=== PATIENT | female | born 1960 | race African-American/Black ===

== ENCOUNTER 2016-09-06 23:32 | Emergency (ER) | payer MEDICAID ==
[~2016-09-06] VITALS: Ht 167.6 cm; Wt 88.5 kg
[~2016-09-06 23:32] MED LIST: CLINDAMYCIN HC300 MG ORAL; IBUPROFEN600 MG ORAL; TYLENOL #21 EA ORAL
[2016-09-06 23:40] VITALS: BP 150/83
[2016-09-07] MEDS ORDERED: CLINDAMYCIN HC300 MG ORAL (00:05)
[2016-09-07] MEDS ORDERED: ACETAMINOPHEN-1 EAC1 ORAL (00:05)
[2016-09-07] MEDS ORDERED: Ketorolac 60mg Inj IM ONE (00:15)
--- NOTE | 2016-09-07 00:19 | Emergency Room Report ---
History of Present Illness General Chief Complaint: Toothache Source: Patient Present Illness HPI 55 YO F with 2-3 days left facial swelling, toothache. hasnt seen a dentist. No OTC meds. Denies fever/chills, neck pain/swelling, tongue/lips swelling, drooling, painful or difficulty swallowing. Allergies: Coded Allergies: PENICILLINS (Unverified Allergy, Unknown, Anaphylaxis, 04/26/14) Patient History Past Medical History: none Past Surgical History: none Pertinent Family History: none Social History: Denies: alcohol use, drug use, smoking Now: No Immunizations: UTD Nursing Documentation-[facility] Hx Cardiac Problems: No - ankle surgery ,tubal ligation and heart murmur, obesity Review of Systems All Other Systems: negative except mentioned in HPI Physical Exam Vital Signs Date Time Temp Pulse Resp B/P Pulse Ox O2 Delivery O2 Flow Rate FiO2 09/06/16 23:35 98.6 76 18 166/80 100 Room Air Sp02 EP Interpretation: reviewed, normal General Appearance: normal inspection, well appearing, no apparent distress, alert Head: atraumatic ENT: normal ENT inspection, hearing grossly normal, normal pharynx, no angioedema, normal voice, TMs + canals normal, uvula midline, other - Left upper teeth, pre-molars rotten/infected. No periapical abscess. 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 VSS. Afebrile. No systemic symptoms or signs ludwigs Airway patent Rx Clinda, T#3, dentist followup BIPIN DC home Last Vital Signs Date Time Temp Pulse Resp B/P Pulse Ox O2 Delivery O2 Flow Rate FiO2 09/06/16 23:35 98.6 76 18 166/80 100 Room Air Status: improved Disposition: HOME, SELF-CARE Condition: Improved Scripts Acetaminophen With Codeine (T#3) (TYLENOL #3 TAB*) Y Tab 2 TAB ORAL Q6H Y for For Pain for 7 Days, #30 TAB Prov: JARED JAQUEZ M.D. 09/07/16 Clindamycin Hcl (CLINDAMYCIN HCL) 300 Mg Capsule 300 MG ORAL THREE TIMES A DAY for 7 Days, #21 CAP Prov: JARED JAQUEZ M.D. 09/07/16 Patient Instructions: Dental Pain Additional Instructions: - Follow up with dentist TODAY/Saturday - Take ALL antibiotics as prescribed - Take Tylenol with codeine as needed for pain JARED JAQUEZ M.D. Sep 07, 2016 00:19
[2016-09-07 00:30] VITALS: BP 150/83
== END 2016-09-07 00:30 | disposition home or self-care (01) ==
LOC: EMR 23:55
DX: K08.89 Other specified disorders of teeth and supporting structures (principal); Z88.0 Allergy status to penicillin
CPT/HCPCS: 96372; 99284

== ENCOUNTER 2017-03-08 22:36 | Emergency (ER) | payer MEDICAID ==
[~2017-03-08] VITALS: Ht 167.6 cm; Wt 90.7 kg
[~2017-03-08 22:36] MED LIST changes: +ACETAMINOPHEN-1 EAC1 ORAL
[2017-03-08 23:20] VITALS: BP 150/82
--- NOTE | 2017-03-08 23:39 | Emergency Room Report ---
History of Present Illness General Chief Complaint: Toothache Source: Patient Present Illness HPI Is a 56-year-old female with chief complaint of dental pain. She had a filling placed by dentist yesterday. Is only temporary. She was given clindamycin and Motrin. Still having pain. No nausea no vomiting. Pain is throbbing in nature. Denies any other complaint. She wanted a tooth to be pulled or the feeling taken out. Allergies: Coded Allergies: PENICILLINS (Unverified Allergy, Unknown, Anaphylaxis, 04/26/14) Patient History Past Medical History: see triage record, old chart reviewed Past Surgical History: none Pertinent Family History: none Social History: Reports: smoking Now: No Immunizations: other Reviewed Nursing Documentation: PMH: Agreed, PSxH: Agreed Nursing Documentation-PMH Past Medical History: No History, Except For Hx Cardiac Problems: No - ankle surgery ,tubal ligation and heart murmur, obesity Review of Systems Eye: Denies: eye pain, blurred vision ENT: Denies: ear pain, nose congestion, throat swelling Respiratory: Denies: cough, shortness of breath Cardiovascular: Denies: chest pain, palpitations Gastrointestinal: Denies: abdominal pain, diarrhea, nausea, vomiting Musculoskeletal: Denies: back pain, joint pain Skin: Denies: rash Neurological: Denies: headache, numbness Endocrine: Denies: increased thirst, increased urine Hematologic/Lymphatic: Denies: easy bruising All Other Systems: negative except mentioned in HPI Physical Exam Vital Signs Date Time Temp Pulse Resp B/P (MAP) Pulse Ox O2 Delivery O2 Flow Rate FiO2 03/08/17 23:10 98.4 92 16 150/82 100 Room Air vitals and high blood pressure Sp02 EP Interpretation: reviewed, normal General Appearance: well appearing, no apparent distress, alert Head: normocephalic, atraumatic Eyes: bilateral eye PERRL, bilateral eye EOMI ENT: hearing grossly normal, normal pharynx, other - Poor dentition. His only one molar left in the right lower jaw. He has a temporary filling in. Abscess. Neck: full range of motion, supple, no meningismus Respiratory: chest non-tender, lungs clear, normal breath sounds Cardiovascular #1: regular rate, rhythm, no murmur Gastrointestinal: normal bowel sounds, non tender, no mass, no organomegaly, no bruit, non-distended Musculoskeletal: back normal, gait/station normal, normal range of motion Neurologic: alert, oriented x3 Psychiatric: mood/affect normal Skin: warm/dry Procedures Additional Procedure Procedure Narrative Procedure: Dental block Indication: Dental pain Description: I injected 2 mL of 1% lidocaine with epinephrine into the right lower inferior alveolar ridge. Patient had good relief of pain. Patient tolerated procedure without a problem. Medical Decision Making Diagnostic Impression: Primary Impression: Toothache ER Course Patient with dental pain and probable infection. Told patient continue with her medication. She has Tylenol with codeine at home. She can take that. Would need to see a dentist on Saturday Last Vital Signs Date Time Temp Pulse Resp B/P (MAP) Pulse Ox O2 Delivery O2 Flow Rate FiO2 03/08/17 23:10 98.4 92 16 150/82 100 Room Air Status: improved Disposition: HOME, SELF-CARE Condition: Stable Patient Instructions: Dental Pain Additional Instructions: Follow up with your dentist BIPIN. Return if symptoms worsen. STEW MCLAIN M.D. Mar 08, 2017 23:39
[2017-03-08 23:46] VITALS: BP 150/82
[2017-03-09] MEDS ORDERED: LIDOCAINE VISC100 ML ORAL (23:43)
== END 2017-03-08 23:44 | disposition home or self-care (01) ==
LOC: EMR 23:33
DX: K08.89 Other specified disorders of teeth and supporting structures (principal); Z88.0 Allergy status to penicillin; F17.200 Nicotine dependence, unspecified, uncomplicated; K04.7 Periapical abscess without sinus
CPT/HCPCS: 64450; 99283

== ENCOUNTER 2017-03-09 23:22 | Emergency (ER) | payer MEDICAID ==
[~2017-03-09] VITALS: Ht 167.6 cm; Wt 90.7 kg
[2017-03-09 23:40] VITALS: BP 152/85
[2017-03-09] MEDS ORDERED: LIDOCAINE VISC100 ML ORAL (23:43)
[2017-03-09] MEDS ORDERED: Ketorolac 30mg Inj IM ONE (23:45)
[2017-03-09] MEDS ORDERED: Lidocaine 2% Visc 15ml soln ORAL ONE (23:45)
[2017-03-10 00:07] VITALS: BP 152/85
--- NOTE | 2017-03-10 04:52 | Emergency Room Report ---
History of Present Illness General Chief Complaint: Toothache Source: Patient Present Illness HPI Patient is a 56-year-old female who presented after right-sided toothache. The patient had been seen yesterday in the emergency department for similar complaints. The patient had been started on antibiotics. She been taking at t Tylenol codeine for pain. The patient had not been vomiting. She reports having recent dental procedure. She requested a filling to be removed. Allergies: Coded Allergies: PENICILLINS (Unverified Allergy, Unknown, Anaphylaxis, 04/26/14) Patient History Past Medical History: see triage record Now: No Reviewed Nursing Documentation: PMH: Agreed, PSxH: Agreed Nursing Documentation-PMH Past Medical History: No History, Except For Hx Cardiac Problems: No - ankle surgery ,tubal ligation and heart murmur, obesity Review of Systems All Other Systems: negative except mentioned in HPI Physical Exam Vital Signs Date Time Temp Pulse Resp B/P (MAP) Pulse Ox O2 Delivery O2 Flow Rate FiO2 03/09/17 23:32 98.4 71 15 152/85 99 Room Air Sp02 EP Interpretation: reviewed, normal General Appearance: normal inspection, well appearing, no apparent distress, alert, GCS 15, non-toxic Head: atraumatic ENT: normal ENT inspection, hearing grossly normal, normal voice Neck: normal inspection, full range of motion, supple, no bony tend Respiratory: normal inspection, lungs clear, normal breath sounds, no respiratory distress, no retraction, no wheezing Cardiovascular #1: regular rate, rhythm, no edema Gastrointestinal: normal inspection, normal bowel sounds, non tender, soft, no guarding, no hernia Genitourinary: no CVA tenderness Musculoskeletal: normal inspection, back normal, normal range of motion Neurologic: normal inspection, alert, oriented x3, responsive, speech normal Psychiatric: normal inspection, judgement/insight normal, mood/affect normal Skin: normal inspection, normal color, no rash Medical Decision Making Diagnostic Impression: Primary Impression: Pain, dental ER Course Patient presented for dental pain. Differential diagnosis included but was not limited to trigeminal neuralgia, dental abscess, dry socket, osteomyelitis, nerve injury. The patient was noted to have a benign exam. There is no evidence of infection. The patient is advised to follow up with dentist in 1- 2 days. Patient is advised to return if any worsening condition or if any changes in status that are concerning. Last Vital Signs Date Time Temp Pulse Resp B/P (MAP) Pulse Ox O2 Delivery O2 Flow Rate FiO2 03/10/17 00:07 98.4 88 16 152/85 100 Room Air Status: improved Disposition: HOME, SELF-CARE Condition: Stable Scripts Lidocaine HCl 2% Viscous (Lidocaine HCl 2% Viscous) 100 Ml Solution 15 ML ORAL QID, #100 ML Prov: Justin Mathews 03/09/17 Referrals: [facility],REFERRING (PCP) Patient Instructions: Dental Pain Justin Mathews Mar 10, 2017 04:52
[2017-03-10] MEDS ORDERED: IBUPROFEN600 MG ORAL (20:51)
[2017-03-10] MEDS ORDERED: NORCO 5-325 TA1 EACH ORAL (20:51)
== END 2017-03-10 00:07 | disposition home or self-care (01) ==
LOC: EMR 23:40
DX: K08.89 Other specified disorders of teeth and supporting structures (principal); Z88.0 Allergy status to penicillin
CPT/HCPCS: 99283

== ENCOUNTER 2017-03-10 19:49 | Emergency (ER) | payer MEDICAID ==
[~2017-03-10] VITALS: Ht 167.6 cm; Wt 90.7 kg
[~2017-03-10 19:49] MED LIST changes: +LIDOCAINE VISC100 ML ORAL
[2017-03-10] MEDS ORDERED: Ketorolac 60mg Inj IM ONE (20:30)
[2017-03-10] MEDS ORDERED: Norco 5mg/325mg tab ORAL ONE (20:30)
--- NOTE | 2017-03-10 20:43 | Emergency Room Report ---
History of Present Illness General Chief Complaint: Toothache Source: Patient Present Illness HPI 56 YO Female presents to the ED C/O 04/23 In severity dental pain since Saturday. Pt. states she had a filling that fell out and a dentist put in temporary filling material on Saturday. pt. was placed on oral abx, and given rx for Tylenol No. 3. Pt. states that she continues to have throbbing sensation in the right lower jaw from the affected tooth. pt. was here last night requesting removal of the temporary filling. pt. was d/c'd with rx for viscous lidocaine for which she states has not been helping. pt. reports doing warm salt water rinses, but pt. cannot sleep at night due to pain . denies fevers or chills. denies rash, pus or swelling to the gums or cheek. pt. denies trauma or fall. pt. denies previous root canal in the affected tooth. Denies CP, Palpitations, LOC, AMS, dizziness, Changes in Vision, Sensation, paresthesias, or a sudden severe headache. Allergies: Coded Allergies: PENICILLINS (Unverified Allergy, Unknown, Anaphylaxis, 04/26/14) Patient History Past Medical History: see triage record Past Surgical History: none Pertinent Family History: none Last Menstrual Period: 3 years ago Now: No Reviewed Nursing Documentation: PMH: Agreed, PSxH: Agreed Nursing Documentation-PMH Past Medical History: No History, Except For Hx Cardiac Problems: No - ankle surgery ,tubal ligation and heart murmur, obesity Review of Systems All Other Systems: negative except mentioned in HPI Physical Exam Vital Signs Date Time Temp Pulse Resp B/P (MAP) Pulse Ox O2 Delivery O2 Flow Rate FiO2 03/10/17 20:10 98.2 89 20 169/90 100 Room Air Sp02 EP Interpretation: reviewed, normal General Appearance: no apparent distress, alert, GCS 15, non-toxic Head: normocephalic, atraumatic Eyes: bilateral eye normal inspection, bilateral eye PERRL ENT: hearing grossly normal, normal voice, TMs + canals normal, uvula midline, moist mucus membranes, other - no palpable fluctuance in the gum line, no appreciable swelling. tooth number 31 with temporary filling is visualized, mild tenderness to percussion. Neck: full range of motion, supple/symm/no masses Respiratory: lungs clear, normal breath sounds Cardiovascular #1: regular rate, rhythm Musculoskeletal: back normal, gait/station normal, normal range of motion Neurologic: alert, oriented x3, responsive, motor strength/tone normal, sensory intact, speech normal Psychiatric: judgement/insight normal, memory normal, mood/affect normal Skin: normal color, no rash, warm/dry, well hydrated Lymphatic: no adenopathy Medical Decision Making PA Attestation Dr. Moreno is my supervising Physician whom patient management has been discussed with. Diagnostic Impression: Primary Impression: Toothache Additional Impression: Pain, dental ER Course 56 YO Female presents to the ED C/O 04/23 In severity dental pain since Saturday. Pt. states she had a filling that fell out and a dentist put in temporary filling material on Saturday. pt. was placed on oral abx, and given rx for Tylenol No. 3. Pt. states that she continues to have throbbing sensation in the right lower jaw from the affected tooth. pt. was here last night requesting removal of the temporary filling. pt. was d/c'd with rx for viscous lidocaine for which she states has not been helping. pt. reports doing warm salt water rinses, but pt. cannot sleep at night due to pain . denies fevers or chills. denies rash, pus or swelling to the gums or cheek. pt. denies trauma or fall. pt. denies previous root canal in the affected tooth. Denies CP, Palpitations, LOC, AMS, dizziness, Changes in Vision, Sensation, paresthesias, or a sudden severe headache. Ddx considered but are not limited to cellulitis, dental abscess, orbital cellulitis, d/l tooth, dental pain. trigeminal neuralgia just to name a few. Vital signs: are WNL, pt. is afebrile H&PE are most consistent with possible dental infection vs pulpitis. no palpable fluctuance in the gum line, no appreciable swelling. tooth number 31 with temporary filling is visualized, mild tenderness to percussion. ORDERS: none required at this time, the diagnosis is clinical ED INTERVENTIONS: -Toradol IM -Garrett PO d/w pt. the importance in following up with a Dentist tomorrow ( Saturday). d/w pt. to continue taking previously prescribed oral abx. d/w pt. to return to the ED with worsening or new symptoms. --- Pt is provided with several lists of low cost dental clinics to follow up with if she does not want to see her previous dentist. DISCHARGE: At this time pt. is stable for d/c to home. Will provide printed patient care instructions, and any necessary prescriptions. Care plan and follow up instructions have been discussed with the patient prior to discharge. Last Vital Signs Date Time Temp Pulse Resp B/P (MAP) Pulse Ox O2 Delivery O2 Flow Rate FiO2 03/10/17 20:10 98.2 89 20 169/90 100 Room Air Disposition: HOME, SELF-CARE Condition: Stable Scripts Ibuprofen* (MOTRIN*) 600 Mg Tablet 600 MG ORAL THREE TIMES A DAY, #20 TAB 0 Refills Prov: Rose Ryan 03/10/17 Hydrocodone Bit/Acetaminophen 5-325* (NORCO 5-325*) 1 Each Tablet 1 TAB ORAL Q6H Y for For Pain, #4 TAB 0 Refills Prov: Rose Ryan 03/10/17 Patient Instructions: Dental Pain Additional Instructions: Take medications as directed. Follow up with a DENTIST TOMORROW , even if your symptoms have resolved. --Please review list of DENTAL clinics, if you do not already have a Dentist Return sooner to ED if new symptoms occur, or current symptoms become worse. - Please note that this Emergency Department Report was dictated using [employer] technology software, occasionally this can lead to erroneous entry secondary to interpretation by the dictation equipment. Rose Ryan Mar 10, 2017 20:43
[2017-03-10] MEDS ORDERED: IBUPROFEN600 MG ORAL (20:51)
[2017-03-10] MEDS ORDERED: NORCO 5-325 TA1 EACH ORAL (20:51)
[2017-03-10 21:09] VITALS: BP 158/88
[2017-03-10 21:15] VITALS: BP 158/88
== END 2017-03-10 21:15 | disposition home or self-care (01) ==
LOC: EMR 20:25
DX: K08.89 Other specified disorders of teeth and supporting structures (principal); Z88.0 Allergy status to penicillin
CPT/HCPCS: 96372; 99284

== ENCOUNTER 2017-04-30 15:54 | Emergency (ER) | payer MEDICAID ==
[~2017-04-30] VITALS: Ht 167.6 cm; Wt 106.6 kg
[~2017-04-30 15:54] MED LIST changes: +NORCO 5-325 TA1 EACH ORAL
[2017-04-30 16:00] VITALS: BP 166/90
[2017-04-30 17:23] VITALS: BP 129/79
--- NOTE | 2017-04-30 21:40 | Emergency Room Report ---
History of Present Illness General Chief Complaint: Head Injury Source: Patient Present Illness HPI This patient left prior to being fully evaluated or having physical examination performed by ED provider. Disposition is unknown. Allergies: Coded Allergies: PENICILLINS (Unverified Allergy, Unknown, Anaphylaxis, 04/26/14) Nursing Documentation-[facility] Past Medical History: No Stated History Hx Cardiac Problems: No - ankle surgery ,tubal ligation and heart murmur, obesity Physical Exam Vital Signs Date Time Temp Pulse Resp B/P (MAP) Pulse Ox O2 Delivery O2 Flow Rate FiO2 04/30/17 16:00 97.0 16 166/90 99 Room Air 04/30/17 16:00 78 Medical Decision Making PA Attestation Dr. Madsen is my supervising Physician whom patient management has been discussed with. Diagnostic Impression: Primary Impression: unknown ER Course This patient left prior to being fully evaluated or having physical examination performed by ED provider. Disposition is unknown. Last Vital Signs Date Time Temp Pulse Resp B/P (MAP) Pulse Ox O2 Delivery O2 Flow Rate FiO2 04/30/17 17:23 62 18 129/79 99 Room Air 04/30/17 16:00 97.0 Disposition: LEFT W/OUT BEING SEEN Condition: Unknown Referrals: [facility],REFERRING (PCP) Rose Ryan Apr 30, 2017 21:40
[2017-04-30] MEDS ORDERED: IBUPROFEN600 MG ORAL (21:56)
== END 2017-04-30 17:30 | disposition left against medical advice (07) ==
LOC: EMR 17:25
DX: S09.90XA Unspecified injury of head, initial encounter (principal); Z53.21 Procedure and treatment not carried out due to patient leaving prior to being seen by health care provider
CPT/HCPCS: 99284

== ENCOUNTER 2017-04-30 21:32 | Emergency (ER) | payer MEDICAID ==
[~2017-04-30] VITALS: Ht 167.6 cm; Wt 92.5 kg
[2017-04-30 21:50] VITALS: BP 158/86
[2017-04-30] MEDS ORDERED: IBUPROFEN600 MG ORAL (21:56)
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
[2017-04-30 22:20] VITALS: BP 158/86
--- NOTE | 2017-05-01 09:20 | Diagnostic Imaging Report ---
Is Indication: TRAUMA Technique: Continuous helical CT scanning of the head was performed without intravenous contrast material. Axial and coronal 5 mm sections were generated. Radiation dose was minimized using automated exposure control Dose: Total Dose Length Product - DLP [address] Dose Index - CTDIvol(s) 70.38 mGy. Comparison: 11/24/2009 Findings: The ventricular system is normal in size and configuration. There is no shift of midline structures. No abnormal extra-axial fluid collections are noted. There is no evidence of intracerebral bleeding. No other abnormal high or low density areas are noted within the brain. Intact calvarium. Visualized orbits and sinuses are unremarkable. No significant interim change Impression: Normal CT scan of the head without contrast material. This agrees with the preliminary interpretation provided overnight by [facility]erad[facility] service. The CT scanner at [facility] is accredited by the [employer] and the scans are performed using protocols designed to limit radiation exposure to as low as reasonably achievable to attain images of sufficient resolution adequate for diagnostic evaluation.
== END 2017-04-30 22:20 | disposition home or self-care (01) ==
LOC: EMR 22:00
DX: S00.83XA Contusion of other part of head, initial encounter (principal); S30.0XXA Contusion of lower back and pelvis, initial encounter; Y04.2XXA Assault by strike against or bumped into by another person, initial encounter; Y92.009 Unspecified place in unspecified non-institutional (private) residence as the place of occurrence of the external cause; Z88.0 Allergy status to penicillin
CPT/HCPCS: 70450; 99284

== ENCOUNTER 2018-04-09 11:31 | Emergency (ER) | payer MEDICAID ==
[~2018-04-09] VITALS: Ht 167.6 cm; Wt 90.7 kg
[2018-04-09] MEDS ORDERED: NKM (11:42)
[2018-04-09 11:55] VITALS: BP 114/97
[2018-04-09] MEDS ORDERED: NAPROXEN375 M2 ORAL (11:57)
--- NOTE | 2018-04-09 11:58 | Emergency Room Report ---
History of Present Illness General Chief Complaint: Pain Source: Patient Present Illness HPI 57F c/o three days "crick" pain in posterior neck, left upper/posterior back/ shoulder. Has tried heating pad, Motrin. Not better. No trauma, no fever, no shortness of breath, no travel history, no leg swelling , no chest pain, no diaphoresis, no exertional complaints, no nausea, no vomiting, no diarrhea, no abdominal pain. Tolerating po fine, normal urinary output, normal bm. No syncope, LOC, dizziness, lightheadedness, headache. CRF: none Allergies: Coded Allergies: PENICILLINS (Unverified Allergy, Unknown, Anaphylaxis, 04/30/17) Patient History Last Menstrual Period: menopause Nursing Documentation-[facility] Past Medical History: No Stated History Hx Cardiac Problems: No - ankle surgery ,tubal ligation and heart murmur, obesity Review of Systems Constitutional: Reports: no symptoms Eye: Reports: no symptoms ENT: Reports: no symptoms Respiratory: Reports: no symptoms Cardiovascular: Reports: no symptoms Gastrointestinal: Reports: no symptoms Genitourinary: Reports: no symptoms Musculoskeletal: Reports: no symptoms Skin: Reports: no symptoms Psychiatric: Reports: no symptoms Neurological: Reports: no symptoms Endocrine: Reports: no symptoms Hematologic/Lymphatic: Reports: no symptoms Allergic: Reports: no symptoms All Other Systems: negative except mentioned in HPI Physical Exam Vital Signs Date Time Temp Pulse Resp B/P (MAP) Pulse Ox O2 Delivery O2 Flow Rate FiO2 04/09/18 11:39 98.2 82 16 114/97 96 Room Air 98.2 Sp02 EP Interpretation: reviewed, normal General Appearance: normal inspection, well appearing, no apparent distress, alert, GCS 15, non-toxic Head: normocephalic, atraumatic Eyes: bilateral eye normal inspection, bilateral eye PERRL, bilateral eye EOMI ENT: normal ENT inspection, hearing grossly normal, normal pharynx, no angioedema, normal voice, moist mucus membranes Neck: normal inspection, full range of motion, supple, no meningismus, no bony tend Respiratory: normal inspection, lungs clear, normal breath sounds, no rhonchi, no respiratory distress, no retraction, no accessory muscle use, no wheezing Cardiovascular #1: normal inspection, regular rate, rhythm, no edema Gastrointestinal: normal inspection, normal bowel sounds, non tender, soft, no mass, non-distended Musculoskeletal: gait/station normal, normal range of motion Neurologic: normal inspection, alert, oriented x3, responsive, motor strength/ tone normal Psychiatric: normal inspection, judgement/insight normal, memory normal Suicide Risk Assessment: Suicidal Ideation: No Had intent to initiate attempt: No Pt's plan for suicide attempt: No Has means to complete attempt: No Skin: normal inspection, normal color, no rash, warm/dry Medical Decision Making Diagnostic Impression: Primary Impression: Torticollis Last Vital Signs Date Time Temp Pulse Resp B/P (MAP) Pulse Ox O2 Delivery O2 Flow Rate FiO2 04/09/18 11:39 98.2 82 16 114/97 96 Room Air 98.2 Status: unchanged Disposition: HOME, SELF-CARE Condition: Stable Scripts Naproxen* (NAPROXEN*) 375 Mg Tablet. 375 MG ORAL TWICE A DAY for 10 Days, #20 TAB Prov: Nick Brasher M.D. 04/09/18 Patient Instructions: Acute Torticollis Nick Brasher M.D. Apr 09, 2018 11:58
[2018-04-09] MEDS ORDERED: Ketorolac 60mg Inj IM ONE (12:00)
[2018-04-09 12:45] VITALS: BP 114/97
== END 2018-04-09 12:45 | disposition home or self-care (01) ==
LOC: EMR 12:00
DX: M43.6 Torticollis (principal); Z88.0 Allergy status to penicillin
CPT/HCPCS: 96372; 99283

== ENCOUNTER 2019-03-23 21:50 | Emergency (ER) | payer MEDICAID ==
[~2019-03-23] VITALS: Ht 165.1 cm; Wt 104.3 kg
[~2019-03-23 21:50] MED LIST changes: +NAPROXEN375 M2 ORAL; +NKM
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
[2019-03-23 22:40] VITALS: BP 142/87
--- NOTE | 2019-03-23 23:15 | NUR ---
ED Nurse Note: ARVIN wrap on R ankle.
--- NOTE | 2019-03-23 23:18 | NUR ---
ED Nurse Note: X ray at bedside.
[2019-03-23 23:40] VITALS: BP 138/80
--- NOTE | 2019-03-23 23:41 | NUR ---
ER DISCHARGE NOTE: Patient is cleared to be discharged per ERMD, pt is aox4, on room air, with stable vital signs. pt was given dc and prescription instructions, pt was able to verbalize understanding, pt id band removed without complications. pt is able to ambulate with steady gait with family. pt took all belongings.
[2019-03-23] MEDS ORDERED: IBUPROFEN600 MG ORAL (23:43)
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
[2019-03-23 23:48] VITALS: BP 138/80
--- NOTE | 2019-03-24 11:57 | Diagnostic Imaging Report ---
Indication: Right ankle pain after slip and fall Technique: 3 views of the right ankle Comparison: none Findings: No acute fractures. No dislocations. There is soft tissue swelling over the lateral malleolus. The joint spaces are preserved. Impression: Lateral soft tissue swelling. No acute bony trauma
--- NOTE | 2019-03-24 12:13 | Diagnostic Imaging Report ---
Indication: Left ankle pain after slip and fall Technique: 3 views of the left ankle Comparison: none Findings: A surgical screw is seen within the medial malleolus. There are a few metallic fragments in the soft tissues immediately adjacent. There is questionably an old healed fracture deformity of the distal fibula. There is a small osseous fragment dorsal to the navicular on the lateral view, the deep edges of which appears slightly irregular. There is no associated soft tissue swelling, however. Impression: Small osseous fragment dorsal to the navicular on the lateral view, could indicate a small avulsion fracture, but could also be a normal os supranaviculare. Correlation with clinical findings is recommended. Finding was reported to Dr. Turner in the emergency room at the time of interpretation No acute bony trauma otherwise Postsurgical changes as described
[2019-03-24] MEDS ORDERED: IBUPROFEN600 MG ORAL (16:40)
== END 2019-03-23 23:48 | disposition home or self-care (01) ==
LOC: EMR 22:58
DX: S93.402A Sprain of unspecified ligament of left ankle, initial encounter (principal); S93.401A Sprain of unspecified ligament of right ankle, initial encounter; V03.90XA Pedestrian on foot injured in collision with car, pick-up truck or van, unspecified whether traffic or nontraffic accident, initial encounter; Y92.410 Unspecified street and highway as the place of occurrence of the external cause; Z98.51 Tubal ligation status; R01.1 Cardiac murmur, unspecified; E66.9 Obesity, unspecified; Z68.38 Body mass index [BMI] 38.0-38.9, adult
CPT/HCPCS: 99284

== ENCOUNTER 2019-03-24 15:24 | Emergency (ER) | payer MEDICAID ==
[~2019-03-24] VITALS: Ht 165.1 cm; Wt 95.7 kg
--- NOTE | 2019-03-24 15:48 | NUR ---
ED Nurse Note: PT WALKED IN TO ER TODAY FROM HOME. AOX4. PT CAME IN TODAY PER SARAH CARR TO REDISCUSS XRAY OF ANKLE TAKEN YESTERDAY DUE TO POSSIBILITY OF FRACTURE. SARAH CARR AT BEDSIDE FOR EVALUATION.
--- NOTE | 2019-03-24 16:24 | Diagnostic Imaging Report ---
Indication: Knee pain Technique: 3 views of the right knee Comparison: None Findings: There is medial compartment degenerative joint space narrowing. No acute fractures. No dislocations. No suprapatellar effusion. Impression: Degenerative changes. No acute bony trauma
--- NOTE | 2019-03-24 16:25 | Diagnostic Imaging Report ---
Indication: Knee pain Technique: 3 views of the left knee Comparison: None Findings: There is mild narrowing of the medial joint compartment. There is a small lateral osteophyte. No acute fracture. No dislocation. No suprapatellar effusion. Unfused ossification center for the tibial tubercle, probably developmental but could indicate old trauma Impression: No acute process. Mild degenerative changes as noted
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
[2019-03-24] MEDS ORDERED: IBUPROFEN600 MG ORAL (16:40)
--- NOTE | 2019-03-24 16:45 | NUR ---
ED Nurse Note: PT SITTING PEACEFULLY IN BED IN NAD. AOX4. PRESCRIPTION AND DISCHARGE PAPERWORK EXPLAINED TO PT. PT VERBALIZES UNDERSTANDING AND ALL QUESTIONS ANSWERED. PRESCRIPTION AND DISCHARGE PAPERWORK GIVEN TO PT AND ID YENY REMOVED. PT WALKED OUT OF ER WITH STEADY GAIT AND ALL BELONGINGS.
[2019-03-24 16:46] VITALS: BP 136/72
--- NOTE | 2019-03-24 16:47 | NUR ---
ED Nurse Note: PT PROVIDED WITH CRUTCHES AND EDUCATED ON PROPER USE OF ASSISTIVE DEVICE. PT ABLE TO DEMONSTRATE BACK STEADY AMBULATION WITH PROPER USE OF ASSISTIVE DEVICE.
--- NOTE | 2019-03-24 16:48 | NUR ---
ED Nurse Note: PT SITTING PEACEFULLY IN BED IN NAD. AOX4. PRESCRIPTION AND DISCHARGE PAPERWORK EXPLAINED TO PT. PT VERBALIZES UNDERSTANDING AND ALL QUESTIONS ANSWERED. PRESCRIPTION AND DISCHARGE PAPERWORK GIVEN TO PT AND ID YENY REMOVED. PT WALKED OUT OF ER WITH STEADY GAIT AND PROPER USE OF ASSISTIVE DEVICE AND ALL BELONGINGS.
== END 2019-03-24 16:49 | disposition home or self-care (01) ==
LOC: EMR 15:39
DX: M25.562 Pain in left knee (principal); M25.561 Pain in right knee; S92.902A Unspecified fracture of left foot, initial encounter for closed fracture; Z88.0 Allergy status to penicillin; Z98.51 Tubal ligation status; R01.1 Cardiac murmur, unspecified; E66.9 Obesity, unspecified; Z68.35 Body mass index [BMI] 35.0-35.9, adult; V09.9XXA Pedestrian injured in unspecified transport accident, initial encounter; Y92.410 Unspecified street and highway as the place of occurrence of the external cause
CPT/HCPCS: 73562; Z7502; 29515; 99284

== ENCOUNTER 2019-04-04 09:16 | Emergency (ER) | payer MEDICAID ==
[~2019-04-04] VITALS: Ht 165.1 cm; Wt 94.3 kg
--- NOTE | 2019-04-04 09:20 | NUR ---
ED Nurse Note: ambulated intoED due to rashes over her leg, chest, arms. Pt states,"my might be picking up prostitude. I don't know what could have possibly cause it. It's itching." NAD noted. a/ox4.
[2019-04-04 09:21] VITALS: BP 140/73
[2019-04-04] MEDS ORDERED: NKM (09:25)
[2019-04-04] MEDS ORDERED: DiphenhydrAMINE 50mg/ml Inj IVP ONE (09:45)
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
[2019-04-04 10:02] LABS: BASOPHILS % (AUTO) 0.2 % (0.0-2.0); EOSINOPHILS % (AUTO) 0.1 % (0.0-3.0); HEMATOCRIT 36.2 % (37.0-47.0); HEMOGLOBIN 11.6 G/DL (12.0-16.0); LYMPHOCYTES % (AUTO) 9.2 % (20.0-45.0); MEAN CORPUSCULAR VOLUME 85 FL (80-99); MONOCYTES % (AUTO) 7.5 % (1.0-10.0); NEUTROPHILS % (AUTO) 83.1 % (45.0-75.0); PLATELET COUNT 277 K/UL (150-450); RED BLOOD COUNT 4.27 M/UL (4.20-5.40); RED CELL DISTRIBUTION WIDTH 11.9 % (11.6-14.8); WHITE BLOOD COUNT 10.6 K/UL (4.8-10.8)
[2019-04-04 10:07] LABS: ANION GAP 9 mmol/L (5-15); BLOOD UREA NITROGEN 23 mg/dL (7-18); CALCIUM 9.2 MG/DL (8.5-10.1); CARBON DIOXIDE 25 MMOL/L (21-32); CHLORIDE 105 MMOL/L (98-107); CREATININE 1.2 MG/DL (0.55-1.30); POTASSIUM 3.7 MMOL/L (3.5-5.1); SODIUM 139 MMOL/L (136-145)
[2019-04-04 10:15] LABS: ALANINE AMINOTRANSFERASE 26 U/L (12-78); ALBUMIN 3.1 G/DL (3.4-5.0); ALBUMIN/GLOBULIN RATIO 0.6 (1.0-2.7); ALKALINE PHOSPHATASE 82 U/L (46-116); APPEARANCE,URINE SLIGHTLY CLOUDY; ASPARTATE AMINO TRANSFERASE 17 U/L (15-37); BILIRUBIN, URINE NEGATIVE (NEGATIVE); BILIRUBIN,TOTAL 0.2 MG/DL (0.2-1.0); GLUCOSE, URINE (UA) NEGATIVE (NEGATIVE); KETONES,URINE 1+ (NEGATIVE); LEUKOCYTE ESTERASE ,URINE 3+ (NEGATIVE); NITRITE,URINE POSITIVE (NEGATIVE); PH,URINE 5 (4.5-8.0); PROTEIN,URINE 2+ (NEGATIVE); UROBILINOGEN,URINE 4 MG/DL (0.0-1.0)
[2019-04-04 10:21] LABS: COLOR,URINE YELLOW
[2019-04-04] MEDS ORDERED: Azithromycin 250mg tab ORAL ONE (10:45)
[2019-04-04] MEDS ORDERED: Lidocaine 1% MPF 10mg/ml 5ml INJ ONE (10:45)
[2019-04-04] MEDS ORDERED: BACITRACIN15 GM TOPIC (11:38)
[2019-04-04] MEDS ORDERED: NITROFURANTOIN100 M2 ORAL (11:38)
[2019-04-04 11:50] VITALS: BP 141/79
[2019-04-04 11:51] VITALS: BP 141/71
--- NOTE | 2019-04-04 11:53 | NUR ---
ER DISCHARGE NOTE: Patient is cleared to be discharged per ERMD, pt is aox4, on room air, with stable vital signs. pt was given dc and prescription instructions, pt was able to verbalize understanding, pt id band and iv site removed without complications. pt is able to ambulate with steady gait. pt took all belongings.
== END 2019-04-04 11:53 | disposition home or self-care (01) ==
LOC: EMR 09:33
DX: R21 Rash and other nonspecific skin eruption (principal); R23.3 Spontaneous ecchymoses; N30.00 Acute cystitis without hematuria; Z20.2 Contact with and (suspected) exposure to infections with a predominantly sexual mode of transmission; Z88.0 Allergy status to penicillin; N89.8 Other specified noninflammatory disorders of vagina
CPT/HCPCS: 36415; 80053; 80196; 80307; 80329; 81003; 85025; 85610; 85730; 86592; 87086; 87181; 87210; 87491; 87590; 96372; 96374; J0696; J1200; Q0144; Z7502; 99284